=== PATIENT | male | born 1980 | race Hispanic/Latino ===

== ENCOUNTER 2025-01-29 17:02 | Emergency (ER) | payer SELFPAY ==
[2025-01-29 17:08] VITALS: BP 128/90
--- NOTE | 2025-01-29 17:40 | ED.GENMED ---
History of Present Illness
General
Chief Complaint: Eye Problems
Source: patient
Exam Limitations: none
Time Seen by Provider: 01/29/25 17:21
Nursing documentation reviewed up to this point in time: agreed with
History of Present Illness
History of Present Illness:
Accidentally hit on left eye with tree branch. COmplains of rednes to his eye. Denies vision changes. Brought to ED by spouse for eval. 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
Past History
Past History
ED Past Medical History: None
Review of Systems
Review of Systems
Allergies reviewed?: Yes
All Other Systems: ROS reviewed and negative except as documented in HPI and ROS
Constitutional: Reports no symptoms
EENT: Reports tearing and other (left lateral subconjunctival hemorrhage)
Respiratory: Reports no symptoms
Cardiac: Reports no symptoms
ABD/GI: Reports no symptoms
: Reports no symptoms
Musculoskeletal: Reports no symptoms
Skin: Reports no symptoms
Neurological: Reports no symptoms
Psychiatric: Reports no symptoms
Phy Exam
General Physical Exam
General Presentation: well appearing and mild distress
General age: appears stated age
General Skin: warm and dry
General Mental: alert
Eye Exam
Eye Exam: PERRL, EOMI, cornea clear, globe normal and other (Lids everted, swept with qtip, no evidence of FB. Left lateral subconjunctival hemorrhage. No corneal abrasion on slit lamp exam. neg. Abhishek test.)
Conjunctival Changes: left: watery discharge
Type of Exam: slit lamp, simple and fluorescein
Musculoskeletal Exam
Musculoskeletal Exam: full ROM
Skin Exam
Skin Exam: normal color and warm/dry
Psychiatric Exam
Psychiatric Exam: normal mood/affect
Course
Orders/Labs/Results
Orders:
Orders
01/29/25 17:37
Tobramycin 0.3% [Tobrex 0.3% Eye Drops] See Dose Instructions OPHTH NOW STA
01/29/25 17:39
Tetracaine HCl [Tetracaine 0.5% Ophthalmic Solution] 1 drop .ROUTE .STK-MED ONE
Vital Signs
Initial and Last Documented VS:
Initial Vital Signs
Temp Pulse Resp BP Pulse Ox
97.9 F 64 16 128/90 100
01/29/25 17:08 01/29/25 17:08 01/29/25 17:08 01/29/25 17:08 01/29/25 17:08
Last Documented Vital Signs
Temp Pulse Resp BP Pulse Ox
97.9 F 64 16 128/90 100
01/29/25 17:08 01/29/25 17:08 01/29/25 17:08 01/29/25 17:08 01/29/25 17:43
*Pulse Oximetry
SaO2: 100
Oxygen Mode of Delivery: Room air
Patient hypoxic: no
*Critical Care Note
Total Time (30-74mins, 75-104mins- exclusive of procedures): Not Applicable
ED Attending Note
-
Portions of this chart may have been created with voice recognition software.� Occasional wrong word or��sound alike� substitutions may have occurred due to the inherent limitations of voice recognition software.
Discharge Plan
Departure
Patient Disposition: Home (Routine Discharge)
Date of Disposition: 01/29/25
Time of Disposition: 17:37
Patient with high blood pressure during this ER visit?: No
Condition: Good
Covid-19: Not Applicable
Discharge Problem:
Subconjunctival hemorrhage, traumatic
Instructions: How to Use Eye Drops, Subconjunctival Hemorrhage
Referrals:
Hubert Russo MD [Active, Ophthalmology] - As needed
NONE,* [Family Provider, Internal Medicine]
Interventions
Interventions:
*Risk Screen - Suicide Last Done: 01/29/25 17:10
*General Assessment Last Done: 01/29/25 17:22
*Neglect/Abuse Screening Last Done: 01/29/25 17:10
*ED COVID-19 Vaccine History Last Done: 01/29/25 17:22
*Nursing Disposition Last Done: 01/29/25 17:44
Discharge Date and Time
Discharge Date/Time: 01/29/25 17:44
Print Language: GREENLANDIC
[2025-01-29] MEDS: TOBREX 0.3% EYE DROPS 1 DROP OPHTH (17:41)
== END 2025-01-29 17:44 | disposition home or self-care (01) ==
LOC: EMR 17:02
PROVIDERS: EMERGENCY PHYSICIAN Emergency Medicine
DX: H11.32 Conjunctival hemorrhage, left eye (principal); W22.8XXA Striking against or struck by other objects, initial encounter
CPT/HCPCS: 99282